=== PATIENT | male | born 1960 | race Caucasian/White ===

== ENCOUNTER 2020-11-10 13:47 | Emergency (ER) | payer OTHER, MEDICAID, SELFPAY ==
--- NOTE | 2020-11-10 14:21 | XR_ITS ---
EXAMINATION: XR CHEST CLINICAL INFORMATION: Shortness of breath. COMPARISON: Chest 09/15/2013 TECHNIQUE: Frontal view of the chest was obtained. FINDINGS: The lungs are well expanded and clear of acute process. The heart size and pulmonary vascularity is normal. There are dual pacer electrodes in the right atrium and the right ventricle. There are median sternotomy sutures and mediastinal elsi from previous intervention. There are surgical elsi seen in bilateral axilla, as well. These elsi are new compared to previous study from 2013. No gross bony abnormality seen. XR/XR chest 1V IMPRESSION: Evidence of CABG, pacer electrodes and bilateral axillary surgical elsi from previous intervention. No acute process seen.
--- NOTE | 2020-11-10 14:21 | ECG_ITS ---
Test Reason : WEAKNESS Blood Pressure : / mmHG Vent. Rate : 104 BPM Atrial Rate : 104 BPM P-R Int : 142 ms QRS Dur : 140 ms QT Int : 382 ms P-R-T Axes : 046 025 -27 degrees QTc Int : 502 ms Sinus tachycardia Right bundle branch block Consider anterolateral ischemia. Abnormal ECG When compared with ECG of 14-JUN-2011 10:36, Sinus rhythm has replaced Electronic ventricular pacemaker Vent. rate has increased BY 49 BPM Referred By: Debbie Henao Electronically Signed By:Tomás Melo
--- NOTE | 2020-11-10 14:23 | ED.GENADULT ---
HPI - General Adult General Chief complaint: General Medical <ARIDANA Capellan - Last Filed: 11/10/20 17:52> Stated complaint: high blood sugar <ARIADNA Capellan - Last Filed: 11/10/20 17:52> Time Seen by Provider: 11/10/20 14:04 <ARIADNA Capellan Last Filed: 11/10/20 17:52> Source: patient <ARIADNA Capellan Last Filed: 11/10/20 17:52> Mode of arrival: ambulatory <ARIADNA Capellan Last Filed: 11/10/20 17:52> Limitations: no limitations <ARIADNA Capellan Last Filed: 11/10/20 17:52> History of Present Illness HPI narrative: 60 y/o male with history of severe cardiomyopathy s/p heart transplant 03/2019, HTN, DM2 on Metformin & CKD who presents with hyperglycemia he thinks the last 4 days. He reports the monitor is not reading his glucose because it has been too high. He reports prior to this is morning glucose is usually 130-150's. He last checked his morning glucose a few weeks ago but has been feeling off for the last 4 days. He has been complaint with his meds. He recently saw his [facility]plant [facility] in [place] on 10/06 and workup was normal per his report. He admits to polyuria and polydipsia the last 4 days. When he was snowblowing his driveway this morning he got very nauseated which prompted him to come to the ER for further evaluation. He denies SOB or chest pain. No vomiting, diarrhea or abdominal pain. No COVID exposure. No cough, fever, chills, urinary symptoms. <ARIADNA Capellan - Last Filed: 11/10/20 17:52> MD complaint: hyperglycemia and nausea <ARIADNA Capellan Last Filed: 11/10/20 17:52> Onset (ago): day(s) (4) <ARIADNA Capellan - Last Filed: 11/10/20 17:52> Location: abdomen <ARIADNA Capellan Last Filed: 11/10/20 17:52> Severity: moderate <ARIADNA Capellan Last Filed: 11/10/20 17:52> Associated symptoms: nausea/vomiting <ARIADNA Capellan - Last Filed: 11/10/20 17:52> Treatments prior to arrival: none <ARIADNA Capellan Last Filed: 11/10/20 17:52> Related Data Home medications: Previous Rx's Medication Instructions Recorded metformin 1,000 mg PO BID #60 tab 11/10/20 <ARIADNA Capellan Last Filed: 11/10/20 17:52> Allergies/adverse reactions: Allergies Allergy/AdvReac Type Severity Reaction Status Date / Time No Known Allergies Allergy Unverified 07/01/20 15:01 <ARIADNA Capellan - Last Filed: 11/10/20 17:52> Review of Systems Review of Systems: Constitutional: No Fever, No Chills ENT/Mouth: No sore throat, No Rhinorrhea, No Swallowing Difficulty Eyes: No Eye Pain, No Swelling, No Redness Cardiovascular: No Chest Pain, No SOB, No Orthopnea, No Edema Respiratory: No Cough, No Sputum, No Wheezing, No dyspnea Gastrointestinal: + Nausea, No Vomiting, No Diarrhea, No abdominal Pain Genitourinary: No Dysuria, + Urinary Frequency, No Hematuria Musculoskeletal: No joint pain, No Myalgias Skin: No Skin Lesions, No rash Neuro: No Weakness, No Numbness, No Dizziness, No Headache Psych: No Anxiety/Panic, No Depression Heme/Lymph: No Bruising, No Lymphadenopathy Endocrine: + Polyuria, + Polydipsia <ARIADNA Capellan Last Filed: 11/10/20 17:52> [facility] Social History Social History: Social History Advance Directives: Yes Advance Directives Information Provided: Yes Advance Directives on File: No <ARIADNA Capellan Last Filed: 11/10/20 17:52> Physical Exam Vital Signs: Vital Signs: Last Vital Signs Temp 99.8 F 11/10/20 18:55 Pulse 99 11/10/20 18:55 Resp 20 11/10/20 18:55 BP 150/99 H 11/10/20 18:55 Pulse Ox 98 11/10/20 18:55 Body Mass Index 32.4 Appearance: Alert. Oriented X3. No acute distress. Eyes: Pupils equal, round and reactive to light. ENT: Pharynx normal. Neck: Normal inspection. Neck supple. CVS: Normal heart rate and rhythm. Pulses normal. Respiratory: No respiratory distress. Breath sounds normal. Abdomen: Soft and nontender. +BS x4 Skin: Skin warm and dry. Normal skin color. Normal skin turgor. No rashes. Extremities: No lower extremity edema. Neuro: Oriented X 3. No motor deficit. No sensory deficit. <ARIADNA Capellan - Last Filed: 11/10/20 17:52> Vital Signs: Last Vital Signs Temp 99.8 F 11/10/20 18:55 Pulse 99 11/10/20 18:55 Resp 11/10/20 18:55 BP 150/99 H 11/10/20 18:55 Pulse Ox 98 11/10/20 18:55 Body Mass Index 32.4 <Renetta Fulton NP - Last Filed: 11/11/20 03:27> Vital Signs: Last Vital Signs Temp 99.8 F 11/10/20 18:55 Pulse 99 11/10/20 18:55 Resp 11/10/20 18:55 BP 150/99 H 11/10/20 18:55 Pulse Ox 98 11/10/20 18:55 Body Mass Index 32.4 <Johnie Figueroa MD - Last Filed: 11/17/20 10:57> Course Course Course Narrative: 60 y/o male presenting with hyperglycemia and nausea. Hx DM2 on Metformin and heart transplant. Reports compliance with meds and diet however has not checked his glucose in 2-3 weeks. Nauseated this morning. Appears well on exam. Will r/o infection and IA. Labs, CXR, EKG and 1L IVF ordered. Will monitor glucose closely with hydration. <ARIADNA Capellan - Last Filed: 11/10/20 17:52> I have reviewed the chart <Johnie Figueroa MD - Last Filed: 11/17/20 10:57> Reevaluation(s) Reevaluation #1: Glucose 635 on chemisty without acidosis or anion gap. No evidence of DKA. He does have an LEXUS with BUN/Cr 34/2.17 - he states his baseline is 1.4-1.6 but it was up to 1.8 in August after his elbow surgery. Will give another liter IVF, 10 units SC insulin and reassess. Troponin 12 with abnormal EKG, no chest pain. Low suspicion for ACS. Will repeat troponin and EKG. Called [facility] number provided by patient - they are unable to speak about medical cases over the phone and are requesting a form be faxed for medical records release. Requested prior EKG and most recent visits. <ARIADNA Capellan - Last Filed: 11/10/20 17:52> Reevaluation #2: Repeat labs are pending. Signed out to Renetta who will assume care. Admission vs d/c home was discussed with the patient. If his renal function and glucose are improved he would prefer to be discharged home with increased dose of Metformin and follow up with his providers rather than be admitted and potentially exposed to COVID-19. He is agreeable to re-addressing once repeat labs are returned. <ARIADNA Capellan - Last Filed: 11/10/20 17:52> Medical Decision Making Lab Data Result diagrams: : 11/10/20 14:37 11/10/20 17:44 <ARIADNA Capellan - Last Filed: 11/10/20 17:52> Labs: Lab Results 11/10/20 11/10/20 11/10/20 Range/Units 14:25 14:37 14:37 WBC 8.3 (4.8-10.8) X10*3/uL RBC 4.23 L (4.60-5.80) X10*6/uL Hgb 11.8 L (14.0-18.0) g/dl Hct 34.9 L (42-52) % MCV 82.5 (80-98) fL MCH 27.9 (27.0-33.0) pg MCHC 33.8 (31.0-36.0) g/dl RDW 13.2 (11.0-16.0) % Plt Count 139 L (160-400) X10*3/uL MPV 11.7 (9.4-12.4) fL Immature Gran % (Auto) 0.6 H (0.0-0.4) % Neut % (Auto) 77.1 H (45-73) % Lymph % (Auto) 13.3 L (20-40) % [place] % (Auto) 8.1 (2-11) % Eos % (Auto) 0.7 (0-4) % Baso % (Auto) 0.2 (0-2) % Lymph # (Auto) 1.1 L (1.2-4.9) X10*3/uL [place] # (Auto) 0.7 (0.1-1.2) X10*3/uL Eos # (Auto) 0.1 (0.0-0.4) X10*3/uL Baso # (Auto) 0.0 (0.0-0.2) X10*3/uL Abs Immat Gran (auto) 0.05 H (0.00-0.03) X10*3/uL Absolute Neuts (auto) 6.4 (2.0-8.3) X10*3/uL Absolute Nucleated RBC 0.000 (0.0-0.012) X10*3/uL Nucleated RBC % (auto) 0.0 (0.0-0.2) /100WBC Hold Blue Top VBG pH (7.32-7.43) VBG pCO2 mmHg VBG pO2 mmHg VBG HCO3 mmol/L VBG O2 Saturation % VBG Base Excess mmol/L Sodium 129 L (135-145) mmol/L Potassium 4.8 (3.3-5.1) mmol/l Chloride 96 (96-108) mmol/L Carbon Dioxide 21 L (22-29) mmol/L Anion Gap 17 (12-20) BUN 34 H (9-16) mg/dL Creatinine 2.17 H (0.5-1.4) mg/dL Estim Creat Clear Calc 44.5 Estimated GFR 31 POC Glucose 595 H* (60-115) mg/dL Random Glucose 635 H* (60-115) mg/dL Lactic Acid (0.5-2.0) mmol/L Calcium 9.7 (8.4-10.2) mg/dL Magnesium 1.7 (1.6-2.6) mg/dL Total Bilirubin 1.0 (0.0-1.0) mg/dL Direct Bilirubin 0.3 (0.0-0.5) mg/dL AST 14 (5-37) U/L ALT 17 (0-40) U/L Alkaline Phosphatase 128 H (39-117) U/L Troponin I High Sens (<3.5-35.0) ng/L B-Natriuretic Peptide (<100) pg/mL Total Protein 7.1 (6.5-8.0) g/dL Albumin 4.5 (3.5-5.0) g/dL Urine Color Urine Appearance Urine pH (5.0-8.0) Ur Specific Rudolph (1.005-1.025) Urine Protein (NEG-TRACE) MG/DL Urine Glucose (UA) (NEG) MG/DL Urine Ketones (NEG) MG/DL Urine Blood (NEG) Urine Nitrite (NEG) Ur Leukocyte Esterase (NEG) Urine RBC (0) /HPF Urine WBC (0-4) /HPF Ur Squamous Epith Cells /LPF Urine Bacteria /LPF Granular Casts /LPF Acetone, Qual Negative (Negative) Coronavirus (PCR) (Negative) Influenza Type A (PCR) (Negative) Influenza Type B (PCR) (Negative) RSV RNA Qual (PCR) (Negative) 11/10/20 11/10/20 11/10/20 Range/Units 14:37 14:37 14:37 WBC (4.8-10.8) X10*3/uL RBC (4.60-5.80) X10*6/uL Hgb (14.0-18.0) g/dl Hct (42-52) % MCV (80-98) fL MCH (27.0-33.0) pg MCHC (31.0-36.0) g/dl RDW (11.0-16.0) % Plt Count (160-400) X10*3/uL MPV (9.4-12.4) fL Immature Gran % (Auto) (0.0-0.4) % Neut % (Auto) (45-73) % Lymph % (Auto) (20-40) % [place] % (Auto) (2-11) % Eos % (Auto) (0-4) % Baso % (Auto) (0-2) % Lymph # (Auto) (1.2-4.9) X10*3/uL [place] # (Auto) (0.1-1.2) X10*3/uL Eos # (Auto) (0.0-0.4) X10*3/uL Baso # (Auto) (0.0-0.2) X10*3/uL Abs Immat Gran (auto) (0.00-0.03) X10*3/uL Absolute Neuts (auto) (2.0-8.3) X10*3/uL Absolute Nucleated RBC (0.0-0.012) X10*3/uL Nucleated RBC % (auto) (0.0-0.2) /100WBC Hold Blue Top SEE NOTE VBG pH (7.32-7.43) VBG pCO2 mmHg VBG pO2 mmHg VBG HCO3 mmol/L VBG O2 Saturation % VBG Base Excess mmol/L Sodium (135-145) mmol/L Potassium (3.3-5.1) mmol/l Chloride (96-108) mmol/L Carbon Dioxide (22-29) mmol/L Anion Gap (12-20) BUN (9-16) mg/dL Creatinine (0.5-1.4) mg/dL Estim Creat Clear Calc Estimated GFR POC Glucose (60-115) mg/dL Random Glucose (60-115) mg/dL Lactic Acid 1.4 (0.5-2.0) mmol/L Calcium (8.4-10.2) mg/dL Magnesium (1.6-2.6) mg/dL Total Bilirubin (0.0-1.0) mg/dL Direct Bilirubin (0.0-0.5) mg/dL AST (5-37) U/L ALT (0-40) U/L Alkaline Phosphatase (39-117) U/L Troponin I High Sens 12.4 (<3.5-35.0) ng/L B-Natriuretic Peptide 46 (<100) pg/mL Total Protein (6.5-8.0) g/dL Albumin (3.5-5.0) g/dL Urine Color Urine Appearance Urine pH (5.0-8.0) Ur Specific Rudolph (1.005-1.025) Urine Protein (NEG-TRACE) MG/DL Urine Glucose (UA) (NEG) MG/DL Urine Ketones (NEG) MG/DL Urine Blood (NEG) Urine Nitrite (NEG) Ur Leukocyte Esterase (NEG) Urine RBC (0) /HPF Urine WBC (0-4) /HPF Ur Squamous Epith Cells /LPF Urine Bacteria /LPF Granular Casts /LPF Acetone, Qual (Negative) Coronavirus (PCR) (Negative) Influenza Type A (PCR) (Negative) Influenza Type B (PCR) (Negative) RSV RNA Qual (PCR) (Negative) 11/10/20 11/10/20 11/10/20 Range/Units 14:39 14:51 15:29 WBC (4.8-10.8) X10*3/uL RBC (4.60-5.80) X10*6/uL Hgb (14.0-18.0) g/dl Hct (42-52) % MCV (80-98) fL MCH (27.0-33.0) pg MCHC (31.0-36.0) g/dl RDW (11.0-16.0) % Plt Count (160-400) X10*3/uL MPV (9.4-12.4) fL Immature Gran % (Auto) (0.0-0.4) % Neut % (Auto) (45-73) % Lymph % (Auto) (20-40) % [place] % (Auto) (2-11) % Eos % (Auto) (0-4) % Baso % (Auto) (0-2) % Lymph # (Auto) (1.2-4.9) X10*3/uL [place] # (Auto) (0.1-1.2) X10*3/uL Eos # (Auto) (0.0-0.4) X10*3/uL Baso # (Auto) (0.0-0.2) X10*3/uL Abs Immat Gran (auto) (0.00-0.03) X10*3/uL Absolute Neuts (auto) (2.0-8.3) X10*3/uL Absolute Nucleated RBC (0.0-0.012) X10*3/uL Nucleated RBC % (auto) (0.0-0.2) /100WBC Hold Blue Top VBG pH 7.39 (7.32-7.43) VBG pCO2 38 mmHg VBG pO2 102 mmHg VBG HCO3 24 mmol/L VBG O2 Saturation 95.0 % VBG Base Excess -0.6 mmol/L Sodium (135-145) mmol/L Potassium (3.3-5.1) mmol/l Chloride (96-108) mmol/L Carbon Dioxide (22-29) mmol/L Anion Gap (12-20) BUN (9-16) mg/dL Creatinine (0.5-1.4) mg/dL Estim Creat Clear Calc Estimated GFR POC Glucose (60-115) mg/dL Random Glucose (60-115) mg/dL Lactic Acid (0.5-2.0) mmol/L Calcium (8.4-10.2) mg/dL Magnesium (1.6-2.6) mg/dL Total Bilirubin (0.0-1.0) mg/dL Direct Bilirubin (0.0-0.5) mg/dL AST (5-37) U/L ALT (0-40) U/L Alkaline Phosphatase (39-117) U/L Troponin I High Sens (<3.5-35.0) ng/L B-Natriuretic Peptide (<100) pg/mL Total Protein (6.5-8.0) g/dL Albumin (3.5-5.0) g/dL Urine Color YELLOW Urine Appearance CLEAR Urine pH 5.5 (5.0-8.0) Ur Specific Rudolph 1.010 (1.005-1.025) Urine Protein NEG (NEG-TRACE) MG/DL Urine Glucose (UA) >=1000 H (NEG) MG/DL Urine Ketones NEG (NEG) MG/DL Urine Blood TRACE (NEG) Urine Nitrite NEG (NEG) Ur Leukocyte Esterase NEG (NEG) Urine RBC 0 (0) /HPF Urine WBC 0-2 (0-4) /HPF Ur Squamous Epith Cells NONE /LPF Urine Bacteria NONE /LPF Granular Casts 0-2 /LPF Acetone, Qual (Negative) Coronavirus (PCR) NEGATIVE (Negative) Influenza Type A (PCR) NEGATIVE (Negative) Influenza Type B (PCR) NEGATIVE (Negative) RSV RNA Qual (PCR) NEGATIVE (Negative) 11/10/20 11/10/20 11/10/20 Range/Units 15:44 16:35 17:44 WBC (4.8-10.8) X10*3/uL RBC (4.60-5.80) X10*6/uL Hgb (14.0-18.0) g/dl Hct (42-52) % MCV (80-98) fL MCH (27.0-33.0) pg MCHC (31.0-36.0) g/dl RDW (11.0-16.0) % Plt Count (160-400) X10*3/uL MPV (9.4-12.4) fL Immature Gran % (Auto) (0.0-0.4) % Neut % (Auto) (45-73) % Lymph % (Auto) (20-40) % [place] % (Auto) (2-11) % Eos % (Auto) (0-4) % Baso % (Auto) (0-2) % Lymph # (Auto) (1.2-4.9) X10*3/uL [place] # (Auto) (0.1-1.2) X10*3/uL Eos # (Auto) (0.0-0.4) X10*3/uL Baso # (Auto) (0.0-0.2) X10*3/uL Abs Immat Gran (auto) (0.00-0.03) X10*3/uL Absolute Neuts (auto) (2.0-8.3) X10*3/uL Absolute Nucleated RBC (0.0-0.012) X10*3/uL Nucleated RBC % (auto) (0.0-0.2) /100WBC Hold Blue Top VBG pH (7.32-7.43) VBG pCO2 mmHg VBG pO2 mmHg VBG HCO3 mmol/L VBG O2 Saturation % VBG Base Excess mmol/L Sodium 133 L (135-145) mmol/L Potassium 4.6 (3.3-5.1) mmol/l Chloride 104 (96-108) mmol/L Carbon Dioxide 21 L (22-29) mmol/L Anion Gap 13 (12-20) BUN 29 H (9-16) mg/dL Creatinine 1.75 H (0.5-1.4) mg/dL Estim Creat Clear Calc 55.1 Estimated GFR 40 POC Glucose 531 H* 474 H* (60-115) mg/dL Random Glucose 365 H* (60-115) mg/dL Lactic Acid (0.5-2.0) mmol/L Calcium 8.8 D (8.4-10.2) mg/dL Magnesium (1.6-2.6) mg/dL Total Bilirubin (0.0-1.0) mg/dL Direct Bilirubin (0.0-0.5) mg/dL AST (5-37) U/L ALT (0-40) U/L Alkaline Phosphatase (39-117) U/L Troponin I High Sens (<3.5-35.0) ng/L B-Natriuretic Peptide (<100) pg/mL Total Protein (6.5-8.0) g/dL Albumin (3.5-5.0) g/dL Urine Color Urine Appearance Urine pH (5.0-8.0) Ur Specific Rudolph (1.005-1.025) Urine Protein (NEG-TRACE) MG/DL Urine Glucose (UA) (NEG) MG/DL Urine Ketones (NEG) MG/DL Urine Blood (NEG) Urine Nitrite (NEG) Ur Leukocyte Esterase (NEG) Urine RBC (0) /HPF Urine WBC (0-4) /HPF Ur Squamous Epith Cells /LPF Urine Bacteria /LPF Granular Casts /LPF Acetone, Qual (Negative) Coronavirus (PCR) (Negative) Influenza Type A (PCR) (Negative) Influenza Type B (PCR) (Negative) RSV RNA Qual (PCR) (Negative) 11/10/20 11/10/20 Range/Units 17:44 18:44 WBC (4.8-10.8) X10*3/uL RBC (4.60-5.80) X10*6/uL Hgb (14.0-18.0) g/dl Hct (42-52) % MCV (80-98) fL MCH (27.0-33.0) pg MCHC (31.0-36.0) g/dl RDW (11.0-16.0) % Plt Count (160-400) X10*3/uL MPV (9.4-12.4) fL Immature Gran % (Auto) (0.0-0.4) % Neut % (Auto) (45-73) % Lymph % (Auto) (20-40) % [place] % (Auto) (2-11) % Eos % (Auto) (0-4) % Baso % (Auto) (0-2) % Lymph # (Auto) (1.2-4.9) X10*3/uL [place] # (Auto) (0.1-1.2) X10*3/uL Eos # (Auto) (0.0-0.4) X10*3/uL Baso # (Auto) (0.0-0.2) X10*3/uL Abs Immat Gran (auto) (0.00-0.03) X10*3/uL Absolute Neuts (auto) (2.0-8.3) X10*3/uL Absolute Nucleated RBC (0.0-0.012) X10*3/uL Nucleated RBC % (auto) (0.0-0.2) /100WBC Hold Blue Top VBG pH (7.32-7.43) VBG pCO2 mmHg VBG pO2 mmHg VBG HCO3 mmol/L VBG O2 Saturation % VBG Base Excess mmol/L Sodium (135-145) mmol/L Potassium (3.3-5.1) mmol/l Chloride (96-108) mmol/L Carbon Dioxide (22-29) mmol/L Anion Gap (12-20) BUN (9-16) mg/dL Creatinine (0.5-1.4) mg/dL Estim Creat Clear Calc Estimated GFR POC Glucose 286 H (60-115) mg/dL Random Glucose (60-115) mg/dL Lactic Acid (0.5-2.0) mmol/L Calcium (8.4-10.2) mg/dL Magnesium (1.6-2.6) mg/dL Total Bilirubin (0.0-1.0) mg/dL Direct Bilirubin (0.0-0.5) mg/dL AST (5-37) U/L ALT (0-40) U/L Alkaline Phosphatase (39-117) U/L Troponin I High Sens 9.4 (<3.5-35.0) ng/L B-Natriuretic Peptide (<100) pg/mL Total Protein (6.5-8.0) g/dL Albumin (3.5-5.0) g/dL Urine Color Urine Appearance Urine pH (5.0-8.0) Ur Specific Rudolph (1.005-1.025) Urine Protein (NEG-TRACE) MG/DL Urine Glucose (UA) (NEG) MG/DL Urine Ketones (NEG) MG/DL Urine Blood (NEG) Urine Nitrite (NEG) Ur Leukocyte Esterase (NEG) Urine RBC (0) /HPF Urine WBC (0-4) /HPF Ur Squamous Epith Cells /LPF Urine Bacteria /LPF Granular Casts /LPF Acetone, Qual (Negative) Coronavirus (PCR) (Negative) Influenza Type A (PCR) (Negative) Influenza Type B (PCR) (Negative) RSV RNA Qual (PCR) (Negative) <ARIADNA Capellan - Last Filed: 11/10/20 17:52> Lab Results 11/10/20 11/10/20 11/10/20 Range/Units 14:25 14:37 14:37 WBC 8.3 (4.8-10.8) X10*3/uL RBC 4.23 L (4.60-5.80) X10*6/uL Hgb 11.8 L (14.0-18.0) g/dl Hct 34.9 L (42-52) % MCV 82.5 (80-98) fL MCH 27.9 (27.0-33.0) pg MCHC 33.8 (31.0-36.0) g/dl RDW 13.2 (11.0-16.0) % Plt Count 139 L (160-400) X10*3/uL MPV 11.7 (9.4-12.4) fL Immature Gran % (Auto) 0.6 H (0.0-0.4) % Neut % (Auto) 77.1 H (45-73) % Lymph % (Auto) 13.3 L (20-40) % [place] % (Auto) 8.1 (2-11) % Eos % (Auto) 0.7 (0-4) % Baso % (Auto) 0.2 (0-2) % Lymph # (Auto) 1.1 L (1.2-4.9) X10*3/uL [place] # (Auto) 0.7 (0.1-1.2) X10*3/uL Eos # (Auto) 0.1 (0.0-0.4) X10*3/uL Baso # (Auto) 0.0 (0.0-0.2) X10*3/uL Abs Immat Gran (auto) 0.05 H (0.00-0.03) X10*3/uL Absolute Neuts (auto) 6.4 (2.0-8.3) X10*3/uL Absolute Nucleated RBC 0.000 (0.0-0.012) X10*3/uL Nucleated RBC % (auto) 0.0 (0.0-0.2) /100WBC Hold Blue Top VBG pH (7.32-7.43) VBG pCO2 mmHg VBG pO2 mmHg VBG HCO3 mmol/L VBG O2 Saturation % VBG Base Excess mmol/L Sodium 129 L (135-145) mmol/L Potassium 4.8 (3.3-5.1) mmol/l Chloride 96 (96-108) mmol/L Carbon Dioxide 21 L (22-29) mmol/L Anion Gap 17 (12-20) BUN 34 H (9-16) mg/dL Creatinine 2.17 H (0.5-1.4) mg/dL Estim Creat Clear Calc 44.5 Estimated GFR 31 POC Glucose 595 H* (60-115) mg/dL Random Glucose 635 H* (60-115) mg/dL Lactic Acid (0.5-2.0) mmol/L Calcium 9.7 (8.4-10.2) mg/dL Magnesium 1.7 (1.6-2.6) mg/dL Total Bilirubin 1.0 (0.0-1.0) mg/dL Direct Bilirubin 0.3 (0.0-0.5) mg/dL AST 14 (5-37) U/L ALT 17 (0-40) U/L Alkaline Phosphatase 128 H (39-117) U/L Troponin I High Sens (<3.5-35.0) ng/L B-Natriuretic Peptide (<100) pg/mL Total Protein 7.1 (6.5-8.0) g/dL Albumin 4.5 (3.5-5.0) g/dL Urine Color Urine Appearance Urine pH (5.0-8.0) Ur Specific Rudolph (1.005-1.025) Urine Protein (NEG-TRACE) MG/DL Urine Glucose (UA) (NEG) MG/DL Urine Ketones (NEG) MG/DL Urine Blood (NEG) Urine Nitrite (NEG) Ur Leukocyte Esterase (NEG) Urine RBC (0) /HPF Urine WBC (0-4) /HPF Ur Squamous Epith Cells /LPF Urine Bacteria /LPF Granular Casts /LPF Acetone, Qual Negative (Negative) Coronavirus (PCR) (Negative) Influenza Type A (PCR) (Negative) Influenza Type B (PCR) (Negative) RSV RNA Qual (PCR) (Negative) 11/10/20 11/10/20 11/10/20 Range/Units 14:37 14:37 14:37 WBC (4.8-10.8) X10*3/uL RBC (4.60-5.80) X10*6/uL Hgb (14.0-18.0) g/dl Hct (42-52) % MCV (80-98) fL MCH (27.0-33.0) pg MCHC (31.0-36.0) g/dl RDW (11.0-16.0) % Plt Count (160-400) X10*3/uL MPV (9.4-12.4) fL Immature Gran % (Auto) (0.0-0.4) % Neut % (Auto) (45-73) % Lymph % (Auto) (20-40) % [place] % (Auto) (2-11) % Eos % (Auto) (0-4) % Baso % (Auto) (0-2) % Lymph # (Auto) (1.2-4.9) X10*3/uL [place] # (Auto) (0.1-1.2) X10*3/uL Eos # (Auto) (0.0-0.4) X10*3/uL Baso # (Auto) (0.0-0.2) X10*3/uL Abs Immat Gran (auto) (0.00-0.03) X10*3/uL Absolute Neuts (auto) (2.0-8.3) X10*3/uL Absolute Nucleated RBC (0.0-0.012) X10*3/uL Nucleated RBC % (auto) (0.0-0.2) /100WBC Hold Blue Top SEE NOTE VBG pH (7.32-7.43) VBG pCO2 mmHg VBG pO2 mmHg VBG HCO3 mmol/L VBG O2 Saturation % VBG Base Excess mmol/L Sodium (135-145) mmol/L Potassium (3.3-5.1) mmol/l Chloride (96-108) mmol/L Carbon Dioxide (22-29) mmol/L Anion Gap (12-20) BUN (9-16) mg/dL Creatinine (0.5-1.4) mg/dL Estim Creat Clear Calc Estimated GFR POC Glucose (60-115) mg/dL Random Glucose (60-115) mg/dL Lactic Acid 1.4 (0.5-2.0) mmol/L Calcium (8.4-10.2) mg/dL Magnesium (1.6-2.6) mg/dL Total Bilirubin (0.0-1.0) mg/dL Direct Bilirubin (0.0-0.5) mg/dL AST (5-37) U/L ALT (0-40) U/L Alkaline Phosphatase (39-117) U/L Troponin I High Sens 12.4 (<3.5-35.0) ng/L B-Natriuretic Peptide 46 (<100) pg/mL Total Protein (6.5-8.0) g/dL Albumin (3.5-5.0) g/dL Urine Color Urine Appearance Urine pH (5.0-8.0) Ur Specific [place] (1.005-1.025) Urine Protein (NEG-TRACE) MG/DL Urine Glucose (UA) (NEG) MG/DL Urine Ketones (NEG) MG/DL Urine Blood (NEG) Urine Nitrite (NEG) Ur Leukocyte Esterase (NEG) Urine RBC (0) /HPF Urine WBC (0-4) /HPF Ur Squamous Epith Cells /LPF Urine Bacteria /LPF Granular Casts /LPF Acetone, Qual (Negative) Coronavirus (PCR) (Negative) Influenza Type A (PCR) (Negative) Influenza Type B (PCR) (Negative) RSV RNA Qual (PCR) (Negative) 11/10/20 11/10/20 11/10/20 Range/Units 14:39 14:51 15:29 WBC (4.8-10.8) X10*3/uL RBC (4.60-5.80) X10*6/uL Hgb (14.0-18.0) g/dl Hct (42-52) % MCV (80-98) fL MCH (27.0-33.0) pg MCHC (31.0-36.0) g/dl RDW (11.0-16.0) % Plt Count (160-400) X10*3/uL MPV (9.4-12.4) fL Immature Gran % (Auto) (0.0-0.4) % Neut % (Auto) (45-73) % Lymph % (Auto) (20-40) % [place] % (Auto) (2-11) % Eos % (Auto) (0-4) % Baso % (Auto) (0-2) % Lymph # (Auto) (1.2-4.9) X10*3/uL [place] # (Auto) (0.1-1.2) X10*3/uL Eos # (Auto) (0.0-0.4) X10*3/uL Baso # (Auto) (0.0-0.2) X10*3/uL Abs Immat Gran (auto) (0.00-0.03) X10*3/uL Absolute Neuts (auto) (2.0-8.3) X10*3/uL Absolute Nucleated RBC (0.0-0.012) X10*3/uL Nucleated RBC % (auto) (0.0-0.2) /100WBC Hold Blue Top VBG pH 7.39 (7.32-7.43) VBG pCO2 38 mmHg VBG pO2 102 mmHg VBG HCO3 24 mmol/L VBG O2 Saturation 95.0 % VBG Base Excess -0.6 mmol/L Sodium (135-145) mmol/L Potassium (3.3-5.1) mmol/l Chloride (96-108) mmol/L Carbon Dioxide (22-29) mmol/L Anion Gap (12-20) BUN (9-16) mg/dL Creatinine (0.5-1.4) mg/dL Estim Creat Clear Calc Estimated GFR POC Glucose (60-115) mg/dL Random Glucose (60-115) mg/dL Lactic Acid (0.5-2.0) mmol/L Calcium (8.4-10.2) mg/dL Magnesium (1.6-2.6) mg/dL Total Bilirubin (0.0-1.0) mg/dL Direct Bilirubin (0.0-0.5) mg/dL AST (5-37) U/L ALT (0-40) U/L Alkaline Phosphatase (39-117) U/L Troponin I High Sens (<3.5-35.0) ng/L B-Natriuretic Peptide (<100) pg/mL Total Protein (6.5-8.0) g/dL Albumin (3.5-5.0) g/dL Urine Color YELLOW Urine Appearance CLEAR Urine pH 5.5 (5.0-8.0) Ur Specific [place] 1.010 (1.005-1.025) Urine Protein NEG (NEG-TRACE) MG/DL Urine Glucose (UA) >=1000 H (NEG) MG/DL Urine Ketones NEG (NEG) MG/DL Urine Blood TRACE (NEG) Urine Nitrite NEG (NEG) Ur Leukocyte Esterase NEG (NEG) Urine RBC 0 (0) /HPF Urine WBC 0-2 (0-4) /HPF Ur Squamous Epith Cells NONE /LPF Urine Bacteria NONE /LPF Granular Casts 0-2 /LPF Acetone, Qual (Negative) Coronavirus (PCR) NEGATIVE (Negative) Influenza Type A (PCR) NEGATIVE (Negative) Influenza Type B (PCR) NEGATIVE (Negative) RSV RNA Qual (PCR) NEGATIVE (Negative) 11/10/20 11/10/20 11/10/20 Range/Units 15:44 16:35 17:44 WBC (4.8-10.8) X10*3/uL RBC (4.60-5.80) X10*6/uL Hgb (14.0-18.0) g/dl Hct (42-52) % MCV (80-98) fL MCH (27.0-33.0) pg MCHC (31.0-36.0) g/dl RDW (11.0-16.0) % Plt Count (160-400) X10*3/uL MPV (9.4-12.4) fL Immature Gran % (Auto) (0.0-0.4) % Neut % (Auto) (45-73) % Lymph % (Auto) (20-40) % [place] % (Auto) (2-11) % Eos % (Auto) (0-4) % Baso % (Auto) (0-2) % Lymph # (Auto) (1.2-4.9) X10*3/uL [place] # (Auto) (0.1-1.2) X10*3/uL Eos # (Auto) (0.0-0.4) X10*3/uL Baso # (Auto) (0.0-0.2) X10*3/uL Abs Immat Gran (auto) (0.00-0.03) X10*3/uL Absolute Neuts (auto) (2.0-8.3) X10*3/uL Absolute Nucleated RBC (0.0-0.012) X10*3/uL Nucleated RBC % (auto) (0.0-0.2) /100WBC Hold Blue Top VBG pH (7.32-7.43) VBG pCO2 mmHg VBG pO2 mmHg VBG HCO3 mmol/L VBG O2 Saturation % VBG Base Excess mmol/L Sodium 133 L (135-145) mmol/L Potassium 4.6 (3.3-5.1) mmol/l Chloride 104 (96-108) mmol/L Carbon Dioxide 21 L (22-29) mmol/L Anion Gap 13 (12-20) BUN 29 H (9-16) mg/dL Creatinine 1.75 H (0.5-1.4) mg/dL Estim Creat Clear Calc 55.1 Estimated GFR 40 POC Glucose 531 H* 474 H* (60-115) mg/dL Random Glucose 365 H* (60-115) mg/dL Lactic Acid (0.5-2.0) mmol/L Calcium 8.8 D (8.4-10.2) mg/dL Magnesium (1.6-2.6) mg/dL Total Bilirubin (0.0-1.0) mg/dL Direct Bilirubin (0.0-0.5) mg/dL AST (5-37) U/L ALT (0-40) U/L Alkaline Phosphatase (39-117) U/L Troponin I High Sens (<3.5-35.0) ng/L B-Natriuretic Peptide (<100) pg/mL Total Protein (6.5-8.0) g/dL Albumin (3.5-5.0) g/dL Urine Color Urine Appearance Urine pH (5.0-8.0) Ur Specific Rudolph (1.005-1.025) Urine Protein (NEG-TRACE) MG/DL Urine Glucose (UA) (NEG) MG/DL Urine Ketones (NEG) MG/DL Urine Blood (NEG) Urine Nitrite (NEG) Ur Leukocyte Esterase (NEG) Urine RBC (0) /HPF Urine WBC (0-4) /HPF Ur Squamous Epith Cells /LPF Urine Bacteria /LPF Granular Casts /LPF Acetone, Qual (Negative) Coronavirus (PCR) (Negative) Influenza Type A (PCR) (Negative) Influenza Type B (PCR) (Negative) RSV RNA Qual (PCR) (Negative) 11/10/20 11/10/20 Range/Units 17:44 18:44 WBC (4.8-10.8) X10*3/uL RBC (4.60-5.80) X10*6/uL Hgb (14.0-18.0) g/dl Hct (42-52) % MCV (80-98) fL MCH (27.0-33.0) pg MCHC (31.0-36.0) g/dl RDW (11.0-16.0) % Plt Count (160-400) X10*3/uL MPV (9.4-12.4) fL Immature Gran % (Auto) (0.0-0.4) % Neut % (Auto) (45-73) % Lymph % (Auto) (20-40) % [place] % (Auto) (2-11) % Eos % (Auto) (0-4) % Baso % (Auto) (0-2) % Lymph # (Auto) (1.2-4.9) X10*3/uL [place] # (Auto) (0.1-1.2) X10*3/uL Eos # (Auto) (0.0-0.4) X10*3/uL Baso # (Auto) (0.0-0.2) X10*3/uL Abs Immat Gran (auto) (0.00-0.03) X10*3/uL Absolute Neuts (auto) (2.0-8.3) X10*3/uL Absolute Nucleated RBC (0.0-0.012) X10*3/uL Nucleated RBC % (auto) (0.0-0.2) /100WBC Hold Blue Top VBG pH (7.32-7.43) VBG pCO2 mmHg VBG pO2 mmHg VBG HCO3 mmol/L VBG O2 Saturation % VBG Base Excess mmol/L Sodium (135-145) mmol/L Potassium (3.3-5.1) mmol/l Chloride (96-108) mmol/L Carbon Dioxide (22-29) mmol/L Anion Gap (12-20) BUN (9-16) mg/dL Creatinine (0.5-1.4) mg/dL Estim Creat Clear Calc Estimated GFR POC Glucose 286 H (60-115) mg/dL Random Glucose (60-115) mg/dL Lactic Acid (0.5-2.0) mmol/L Calcium (8.4-10.2) mg/dL Magnesium (1.6-2.6) mg/dL Total Bilirubin (0.0-1.0) mg/dL Direct Bilirubin (0.0-0.5) mg/dL AST (5-37) U/L ALT (0-40) U/L Alkaline Phosphatase (39-117) U/L Troponin I High Sens 9.4 (<3.5-35.0) ng/L B-Natriuretic Peptide (<100) pg/mL Total Protein (6.5-8.0) g/dL Albumin (3.5-5.0) g/dL Urine Color Urine Appearance Urine pH (5.0-8.0) Ur Specific Rudolph (1.005-1.025) Urine Protein (NEG-TRACE) MG/DL Urine Glucose (UA) (NEG) MG/DL Urine Ketones (NEG) MG/DL Urine Blood (NEG) Urine Nitrite (NEG) Ur Leukocyte Esterase (NEG) Urine RBC (0) /HPF Urine WBC (0-4) /HPF Ur Squamous Epith Cells /LPF Urine Bacteria /LPF Granular Casts /LPF Acetone, Qual (Negative) Coronavirus (PCR) (Negative) Influenza Type A (PCR) (Negative) Influenza Type B (PCR) (Negative) RSV RNA Qual (PCR) (Negative) <Renetta Fulton NP - Last Filed: 11/11/20 03:27> Lab Results 11/10/20 11/10/20 11/10/20 Range/Units 14:25 14:37 14:37 WBC 8.3 (4.8-10.8) X10*3/uL RBC 4.23 L (4.60-5.80) X10*6/uL Hgb 11.8 L (14.0-18.0) g/dl Hct 34.9 L (42-52) % MCV 82.5 (80-98) fL MCH 27.9 (27.0-33.0) pg MCHC 33.8 (31.0-36.0) g/dl RDW 13.2 (11.0-16.0) % Plt Count 139 L (160-400) X10*3/uL MPV 11.7 (9.4-12.4) fL Immature Gran % (Auto) 0.6 H (0.0-0.4) % Neut % (Auto) 77.1 H (45-73) % Lymph % (Auto) 13.3 L (20-40) % [place] % (Auto) 8.1 (2-11) % Eos % (Auto) 0.7 (0-4) % Baso % (Auto) 0.2 (0-2) % Lymph # (Auto) 1.1 L (1.2-4.9) X10*3/uL [place] # (Auto) 0.7 (0.1-1.2) X10*3/uL Eos # (Auto) 0.1 (0.0-0.4) X10*3/uL Baso # (Auto) 0.0 (0.0-0.2) X10*3/uL Abs Immat Gran (auto) 0.05 H (0.00-0.03) X10*3/uL Absolute Neuts (auto) 6.4 (2.0-8.3) X10*3/uL Absolute Nucleated RBC 0.000 (0.0-0.012) X10*3/uL Nucleated RBC % (auto) 0.0 (0.0-0.2) /100WBC Hold Blue Top VBG pH (7.32-7.43) VBG pCO2 mmHg VBG pO2 mmHg VBG HCO3 mmol/L VBG O2 Saturation % VBG Base Excess mmol/L Sodium 129 L (135-145) mmol/L Potassium 4.8 (3.3-5.1) mmol/l Chloride 96 (96-108) mmol/L Carbon Dioxide 21 L (22-29) mmol/L Anion Gap 17 (12-20) BUN 34 H (9-16) mg/dL Creatinine 2.17 H (0.5-1.4) mg/dL Estim Creat Clear Calc 44.5 Estimated GFR 31 POC Glucose 595 H* (60-115) mg/dL Random Glucose 635 H* (60-115) mg/dL Lactic Acid (0.5-2.0) mmol/L Calcium 9.7 (8.4-10.2) mg/dL Magnesium 1.7 (1.6-2.6) mg/dL Total Bilirubin 1.0 (0.0-1.0) mg/dL Direct Bilirubin 0.3 (0.0-0.5) mg/dL AST 14 (5-37) U/L ALT 17 (0-40) U/L Alkaline Phosphatase 128 H (39-117) U/L Troponin I High Sens (<3.5-35.0) ng/L B-Natriuretic Peptide (<100) pg/mL Total Protein 7.1 (6.5-8.0) g/dL Albumin 4.5 (3.5-5.0) g/dL Urine Color Urine Appearance Urine pH (5.0-8.0) Ur Specific Rudolph (1.005-1.025) Urine Protein (NEG-TRACE) MG/DL Urine Glucose (UA) (NEG) MG/DL Urine Ketones (NEG) MG/DL Urine Blood (NEG) Urine Nitrite (NEG) Ur Leukocyte Esterase (NEG) Urine RBC (0) /HPF Urine WBC (0-4) /HPF Ur Squamous Epith Cells /LPF Urine Bacteria /LPF Granular Casts /LPF Acetone, Qual Negative (Negative) Coronavirus (PCR) (Negative) Influenza Type A (PCR) (Negative) Influenza Type B (PCR) (Negative) RSV RNA Qual (PCR) (Negative) 11/10/20 11/10/20 11/10/20 Range/Units 14:37 14:37 14:37 WBC (4.8-10.8) X10*3/uL RBC (4.60-5.80) X10*6/uL Hgb (14.0-18.0) g/dl Hct (42-52) % MCV (80-98) fL MCH (27.0-33.0) pg MCHC (31.0-36.0) g/dl RDW (11.0-16.0) % Plt Count (160-400) X10*3/uL MPV (9.4-12.4) fL Immature Gran % (Auto) (0.0-0.4) % Neut % (Auto) (45-73) % Lymph % (Auto) (20-40) % [place] % (Auto) (2-11) % Eos % (Auto) (0-4) % Baso % (Auto) (0-2) % Lymph # (Auto) (1.2-4.9) X10*3/uL [place] # (Auto) (0.1-1.2) X10*3/uL Eos # (Auto) (0.0-0.4) X10*3/uL Baso # (Auto) (0.0-0.2) X10*3/uL Abs Immat Gran (auto) (0.00-0.03) X10*3/uL Absolute Neuts (auto) (2.0-8.3) X10*3/uL Absolute Nucleated RBC (0.0-0.012) X10*3/uL Nucleated RBC % (auto) (0.0-0.2) /100WBC Hold Blue Top SEE NOTE VBG pH (7.32-7.43) VBG pCO2 mmHg VBG pO2 mmHg VBG HCO3 mmol/L VBG O2 Saturation % VBG Base Excess mmol/L Sodium (135-145) mmol/L Potassium (3.3-5.1) mmol/l Chloride (96-108) mmol/L Carbon Dioxide (22-29) mmol/L Anion Gap (12-20) BUN (9-16) mg/dL Creatinine (0.5-1.4) mg/dL Estim Creat Clear Calc Estimated GFR POC Glucose (60-115) mg/dL Random Glucose (60-115) mg/dL Lactic Acid 1.4 (0.5-2.0) mmol/L Calcium (8.4-10.2) mg/dL Magnesium (1.6-2.6) mg/dL Total Bilirubin (0.0-1.0) mg/dL Direct Bilirubin (0.0-0.5) mg/dL AST (5-37) U/L ALT (0-40) U/L Alkaline Phosphatase (39-117) U/L Troponin I High Sens 12.4 (<3.5-35.0) ng/L B-Natriuretic Peptide 46 (<100) pg/mL Total Protein (6.5-8.0) g/dL Albumin (3.5-5.0) g/dL Urine Color Urine Appearance Urine pH (5.0-8.0) Ur Specific Rudolph (1.005-1.025) Urine Protein (NEG-TRACE) MG/DL Urine Glucose (UA) (NEG) MG/DL Urine Ketones (NEG) MG/DL Urine Blood (NEG) Urine Nitrite (NEG) Ur Leukocyte Esterase (NEG) Urine RBC (0) /HPF Urine WBC (0-4) /HPF Ur Squamous Epith Cells /LPF Urine Bacteria /LPF Granular Casts /LPF Acetone, Qual (Negative) Coronavirus (PCR) (Negative) Influenza Type A (PCR) (Negative) Influenza Type B (PCR) (Negative) RSV RNA Qual (PCR) (Negative) 11/10/20 11/10/20 11/10/20 Range/Units 14:39 14:51 15:29 WBC (4.8-10.8) X10*3/uL RBC (4.60-5.80) X10*6/uL Hgb (14.0-18.0) g/dl Hct (42-52) % MCV (80-98) fL MCH (27.0-33.0) pg MCHC (31.0-36.0) g/dl RDW (11.0-16.0) % Plt Count (160-400) X10*3/uL MPV (9.4-12.4) fL Immature Gran % (Auto) (0.0-0.4) % Neut % (Auto) (45-73) % Lymph % (Auto) (20-40) % [place] % (Auto) (2-11) % Eos % (Auto) (0-4) % Baso % (Auto) (0-2) % Lymph # (Auto) (1.2-4.9) X10*3/uL [place] # (Auto) (0.1-1.2) X10*3/uL Eos # (Auto) (0.0-0.4) X10*3/uL Baso # (Auto) (0.0-0.2) X10*3/uL Abs Immat Gran (auto) (0.00-0.03) X10*3/uL Absolute Neuts (auto) (2.0-8.3) X10*3/uL Absolute Nucleated RBC (0.0-0.012) X10*3/uL Nucleated RBC % (auto) (0.0-0.2) /100WBC Hold Blue Top VBG pH 7.39 (7.32-7.43) VBG pCO2 38 mmHg VBG pO2 102 mmHg VBG HCO3 24 mmol/L VBG O2 Saturation 95.0 % VBG Base Excess -0.6 mmol/L Sodium (135-145) mmol/L Potassium (3.3-5.1) mmol/l Chloride (96-108) mmol/L Carbon Dioxide (22-29) mmol/L Anion Gap (12-20) BUN (9-16) mg/dL Creatinine (0.5-1.4) mg/dL Estim Creat Clear Calc Estimated GFR POC Glucose (60-115) mg/dL Random Glucose (60-115) mg/dL Lactic Acid (0.5-2.0) mmol/L Calcium (8.4-10.2) mg/dL Magnesium (1.6-2.6) mg/dL Total Bilirubin (0.0-1.0) mg/dL Direct Bilirubin (0.0-0.5) mg/dL AST (5-37) U/L ALT (0-40) U/L Alkaline Phosphatase (39-117) U/L Troponin I High Sens (<3.5-35.0) ng/L B-Natriuretic Peptide (<100) pg/mL Total Protein (6.5-8.0) g/dL Albumin (3.5-5.0) g/dL Urine Color YELLOW Urine Appearance CLEAR Urine pH 5.5 (5.0-8.0) Ur Specific Rudolph 1.010 (1.005-1.025) Urine Protein NEG (NEG-TRACE) MG/DL Urine Glucose (UA) >=1000 H (NEG) MG/DL Urine Ketones NEG (NEG) MG/DL Urine Blood TRACE (NEG) Urine Nitrite NEG (NEG) Ur Leukocyte Esterase NEG (NEG) Urine RBC 0 (0) /HPF Urine WBC 0-2 (0-4) /HPF Ur Squamous Epith Cells NONE /LPF Urine Bacteria NONE /LPF Granular Casts 0-2 /LPF Acetone, Qual (Negative) Coronavirus (PCR) NEGATIVE (Negative) Influenza Type A (PCR) NEGATIVE (Negative) Influenza Type B (PCR) NEGATIVE (Negative) RSV RNA Qual (PCR) NEGATIVE (Negative) 11/10/20 11/10/20 11/10/20 Range/Units 15:44 16:35 17:44 WBC (4.8-10.8) X10*3/uL RBC (4.60-5.80) X10*6/uL Hgb (14.0-18.0) g/dl Hct (42-52) % MCV (80-98) fL MCH (27.0-33.0) pg MCHC (31.0-36.0) g/dl RDW (11.0-16.0) % Plt Count (160-400) X10*3/uL MPV (9.4-12.4) fL Immature Gran % (Auto) (0.0-0.4) % Neut % (Auto) (45-73) % Lymph % (Auto) (20-40) % [place] % (Auto) (2-11) % Eos % (Auto) (0-4) % Baso % (Auto) (0-2) % Lymph # (Auto) (1.2-4.9) X10*3/uL [place] # (Auto) (0.1-1.2) X10*3/uL Eos # (Auto) (0.0-0.4) X10*3/uL Baso # (Auto) (0.0-0.2) X10*3/uL Abs Immat Gran (auto) (0.00-0.03) X10*3/uL Absolute Neuts (auto) (2.0-8.3) X10*3/uL Absolute Nucleated RBC (0.0-0.012) X10*3/uL Nucleated RBC % (auto) (0.0-0.2) /100WBC Hold Blue Top VBG pH (7.32-7.43) VBG pCO2 mmHg VBG pO2 mmHg VBG HCO3 mmol/L VBG O2 Saturation % VBG Base Excess mmol/L Sodium 133 L (135-145) mmol/L Potassium 4.6 (3.3-5.1) mmol/l Chloride 104 (96-108) mmol/L Carbon Dioxide 21 L (22-29) mmol/L Anion Gap 13 (12-20) BUN 29 H (9-16) mg/dL Creatinine 1.75 H (0.5-1.4) mg/dL Estim Creat Clear Calc 55.1 Estimated GFR 40 POC Glucose 531 H* 474 H* (60-115) mg/dL Random Glucose 365 H* (60-115) mg/dL Lactic Acid (0.5-2.0) mmol/L Calcium 8.8 D (8.4-10.2) mg/dL Magnesium (1.6-2.6) mg/dL Total Bilirubin (0.0-1.0) mg/dL Direct Bilirubin (0.0-0.5) mg/dL AST (5-37) U/L ALT (0-40) U/L Alkaline Phosphatase (39-117) U/L Troponin I High Sens (<3.5-35.0) ng/L B-Natriuretic Peptide (<100) pg/mL Total Protein (6.5-8.0) g/dL Albumin (3.5-5.0) g/dL Urine Color Urine Appearance Urine pH (5.0-8.0) Ur Specific Rudolph (1.005-1.025) Urine Protein (NEG-TRACE) MG/DL Urine Glucose (UA) (NEG) MG/DL Urine Ketones (NEG) MG/DL Urine Blood (NEG) Urine Nitrite (NEG) Ur Leukocyte Esterase (NEG) Urine RBC (0) /HPF Urine WBC (0-4) /HPF Ur Squamous Epith Cells /LPF Urine Bacteria /LPF Granular Casts /LPF Acetone, Qual (Negative) Coronavirus (PCR) (Negative) Influenza Type A (PCR) (Negative) Influenza Type B (PCR) (Negative) RSV RNA Qual (PCR) (Negative) 11/10/20 11/10/20 Range/Units 17:44 18:44 WBC (4.8-10.8) X10*3/uL RBC (4.60-5.80) X10*6/uL Hgb (14.0-18.0) g/dl Hct (42-52) % MCV (80-98) fL MCH (27.0-33.0) pg MCHC (31.0-36.0) g/dl RDW (11.0-16.0) % Plt Count (160-400) X10*3/uL MPV (9.4-12.4) fL Immature Gran % (Auto) (0.0-0.4) % Neut % (Auto) (45-73) % Lymph % (Auto) (20-40) % [place] % (Auto) (2-11) % Eos % (Auto) (0-4) % Baso % (Auto) (0-2) % Lymph # (Auto) (1.2-4.9) X10*3/uL [place] # (Auto) (0.1-1.2) X10*3/uL Eos # (Auto) (0.0-0.4) X10*3/uL Baso # (Auto) (0.0-0.2) X10*3/uL Abs Immat Gran (auto) (0.00-0.03) X10*3/uL Absolute Neuts (auto) (2.0-8.3) X10*3/uL Absolute Nucleated RBC (0.0-0.012) X10*3/uL Nucleated RBC % (auto) (0.0-0.2) /100WBC Hold Blue Top VBG pH (7.32-7.43) VBG pCO2 mmHg VBG pO2 mmHg VBG HCO3 mmol/L VBG O2 Saturation % VBG Base Excess mmol/L Sodium (135-145) mmol/L Potassium (3.3-5.1) mmol/l Chloride (96-108) mmol/L Carbon Dioxide (22-29) mmol/L Anion Gap (12-20) BUN (9-16) mg/dL Creatinine (0.5-1.4) mg/dL Estim Creat Clear Calc Estimated GFR POC Glucose 286 H (60-115) mg/dL Random Glucose (60-115) mg/dL Lactic Acid (0.5-2.0) mmol/L Calcium (8.4-10.2) mg/dL Magnesium (1.6-2.6) mg/dL Total Bilirubin (0.0-1.0) mg/dL Direct Bilirubin (0.0-0.5) mg/dL AST (5-37) U/L ALT (0-40) U/L Alkaline Phosphatase (39-117) U/L Troponin I High Sens 9.4 (<3.5-35.0) ng/L B-Natriuretic Peptide (<100) pg/mL Total Protein (6.5-8.0) g/dL Albumin (3.5-5.0) g/dL Urine Color Urine Appearance Urine pH (5.0-8.0) Ur Specific Rudolph (1.005-1.025) Urine Protein (NEG-TRACE) MG/DL Urine Glucose (UA) (NEG) MG/DL Urine Ketones (NEG) MG/DL Urine Blood (NEG) Urine Nitrite (NEG) Ur Leukocyte Esterase (NEG) Urine RBC (0) /HPF Urine WBC (0-4) /HPF Ur Squamous Epith Cells /LPF Urine Bacteria /LPF Granular Casts /LPF Acetone, Qual (Negative) Coronavirus (PCR) (Negative) Influenza Type A (PCR) (Negative) Influenza Type B (PCR) (Negative) RSV RNA Qual (PCR) (Negative) <Johnie Figueroa MD - Last Filed: 11/17/20 10:57> ECG Data Attestation: I personally reviewed and interpreted this ECG as follows: <ARIADNA Capellan - Last Filed: 11/10/20 17:52> Interpretation: 14:35- sinus tachycardia, HR 104, RBBB, T-wave abnormality in lead III and t-wave inversions throughout precordial leads 16:47 - normal sinus rhythm, HR 96 bpm, no change in T-wave abnormality in lead III & precordial leads <ARIADNA Capellan - Last Filed: 11/10/20 17:52> Discharge Plan Discharge Clinical Impression: Acute kidney injury, Acute hyperglycemia <ARIADNA Capellan - Last Filed: 11/10/20 17:52> Patient Disposition: Home, Self-Care <ARIADNA Capellan - Last Filed: 11/10/20 17:52> Instructions: Acute Kidney Injury (DC), Diabetic Hyperglycemia (ED) <ARIADNA Capellan - Last Filed: 11/10/20 17:52> Additional Instructions: You were evaluated for elevated blood sugar. Over the course of several hours we gave the 17 units of subcu insulin to help reduce your blood sugar. Please follow-up with your primary care physician and or prescribing physician for medication evaluation. You may need to increase metformin or consider insulin. Please follow-up with the cardiac transplant team tomorrow. Thank you for choosing this emergency department for evaluation. Please follow-up with primary care physician as needed. Return to the emergency department for any new, concerning, or worsening symptoms. <ARIADNA Capellan - Last Filed: 11/10/20 17:52> Prescriptions: New metformin 1,000 mg tablet 1,000 mg PO BID Qty: 60 RF: 0 <ARIADNA Capellan - Last Filed: 11/10/20 17:52> Interventions: ED Discharge Assessment Last Done: 11/10/20 18:53 <ARIADNA Capellan - Last Filed: 11/10/20 17:52> Discharge Date/Time: 11/10/20 18:55 <ARIADNA Capellan - Last Filed: 11/10/20 17:52>
[2020-11-10 14:26] VITALS: BP 143/77; PULSE 107; RESP 18; TEMP 37.3; O2SAT 97; BMI 32.4
[2020-11-10] MEDS: 0.9 % Sodium Chloride 1,000 ML 999 ML IVCONT ×2 (14:41→15:48)
[2020-11-10 14:43] LABS: Glucose, Whole Blood 595 mg/dL (60-115)
[2020-11-10 14:45] LABS: MANUAL DIFF FLAG NO
[2020-11-10 14:46] LABS: Basophils Percent Auto 0.2 % (0-2); Eosinophils Absolute Auto 0.1 X10*3/uL (0.0-0.4); Eosinophils Percent Auto 0.7 % (0-4); Hematocrit 34.9 % (42-52); Hemoglobin 11.8 g/dl (14.0-18.0); Imm Gran Abs Auto 0.05 X10*3/uL (0.00-0.03); Imm Gran Pct Auto 0.6 % (0.0-0.4); Lymphocytes Absolute Auto 1.1 X10*3/uL (1.2-4.9); Lymphocytes Percent Auto 13.3 % (20-40); Mean Corpuscular HGB Conc 33.8 g/dl (31.0-36.0); Mean Corpuscular Hemoglobin 27.9 pg (27.0-33.0); Mean Corpuscular Volume 82.5 fL (80-98); Mean Platelet Volume 11.7 fL (9.4-12.4); Monocytes Absolute Auto 0.7 X10*3/uL (0.1-1.2); Monocytes Percent Auto 8.1 % (2-11); Neutrophils Absolute Auto 6.4 X10*3/uL (2.0-8.3); Neutrophils Percent Auto 77.1 % (45-73); Platelet Count 139 X10*3/uL (160-400); Red Blood Count 4.23 X10*6/uL (4.60-5.80); Red Cell Distribution Width 13.2 % (11.0-16.0); White Blood Count 8.3 X10*3/uL (4.8-10.8)
[2020-11-10 15:01] LABS: Base Excess VBG -0.6 mmol/L; HCO3 VBG 24 mmol/L; PCO2 VBG 38 mmHg; PO2 VBG 102 mmHg; pH VBG 7.39 (7.32-7.43)
[2020-11-10 15:02] LABS: Lactic Acid 1.4 mmol/L (0.5-2.0)
[2020-11-10 15:13] LABS: B Type Natriuretic Peptide 46 pg/mL (<100); Troponin-I High Sensitivity 12.4 ng/L (<3.5-35.0)
[2020-11-10 15:22] VITALS: BP 150/89; PULSE 97; RESP 15; TEMP 37.2; O2SAT 97
[2020-11-10 15:22] LABS: Influenza A PCR NEGATIVE (Negative); Influenza B PCR NEGATIVE (Negative); Resp Syncy Virus RNA Qual PCR NEGATIVE (Negative); SARS COV2 PCR INHOUSE NEGATIVE (Negative)
[2020-11-10 15:28] LABS: Alanine Aminotransferase 17 U/L (0-40); Albumin Level 4.5 g/dL (3.5-5.0); Alkaline Phosphatase 128 U/L (39-117); Anion Gap 17 (12-20); Aspartate Amino Transferase 14 U/L (5-37); Bilirubin Direct 0.3 mg/dL (0.0-0.5); Blood Urea Nitrogen 34 mg/dL (9-16); Calcium 9.7 mg/dL (8.4-10.2); Carbon Dioxide 21 mmol/L (22-29); Chloride 96 mmol/L (96-108); Creatinine Clr Calc Pharmacy 44.5; Estimated Glomerular Filt Rate 31; Glucose Random 635 mg/dL (60-115); Magnesium 1.7 mg/dL (1.6-2.6); Potassium 4.8 mmol/l (3.3-5.1); Sodium 129 mmol/L (135-145); Total Protein 7.1 g/dL (6.5-8.0)
[2020-11-10 15:38] LABS: Glucose Urine UA >=1000 MG/DL (NEG); Leukocyte Esterase Urine NEG (NEG); Nitrite Urine NEG (NEG); PH 5.5 (5.0-8.0); Urine Blood TRACE (NEG); Urine Ketones NEG (NEG); Urine Protein NEG (NEG-TRACE)
[2020-11-10 15:47] LABS: Glucose, Whole Blood 531 mg/dL (60-115)
[2020-11-10] MEDS: Insulin Lispro 100 UNIT/ML 3 ML VIAL 10 UNIT SUBCUT (15:47)
[2020-11-10 15:49] LABS: Appearance Urine CLEAR; Color Urine YELLOW
[2020-11-10 15:50] LABS: Granular Casts Urine 0-2 /LPF; RBC Urine 0 /HPF (0); WBC Urine 0-2 /HPF (0-4)
[2020-11-10 16:03] LABS: Acetone, serum QL Negative (Negative)
[2020-11-10 16:21] VITALS: BP 134/87; PULSE 92; RESP 15; TEMP 37.3; O2SAT 97
--- NOTE | 2020-11-10 16:27 | ECG_ITS ---
Test Reason : HYPERGLYCEMIA Blood Pressure : / mmHG Vent. Rate : 096 BPM Atrial Rate : 096 BPM P-R Int : 162 ms QRS Dur : 144 ms QT Int : 388 ms P-R-T Axes : 047 026 -18 degrees QTc Int : 490 ms Normal sinus rhythm Right bundle branch block T wave abnormality, consider inferior ischemia /anterior lateral ischemia Abnormal ECG When compared with ECG of 10-NOV-2020 14:35, No significant change was found Referred By: Debbie Henao Electronically Signed By:Tomás Melo
[2020-11-10 16:43] LABS: Glucose, Whole Blood 474 mg/dL (60-115)
[2020-11-10 18:20] LABS: Anion Gap 13 (12-20); Blood Urea Nitrogen 29 mg/dL (9-16); Calcium 8.8 mg/dL (8.4-10.2); Carbon Dioxide 21 mmol/L (22-29); Chloride 104 mmol/L (96-108); Creatinine Clr Calc Pharmacy 55.1; Estimated Glomerular Filt Rate 40; Glucose Random 365 mg/dL (60-115); Potassium 4.6 mmol/l (3.3-5.1); Sodium 133 mmol/L (135-145); Troponin-I High Sensitivity 9.4 ng/L (<3.5-35.0)
[2020-11-10] MEDS: Insulin Regular, Human 100 UNIT/ML 3 ML VIAL 7 UNIT SUBCUT (18:48)
[2020-11-10 18:49] LABS: Glucose, Whole Blood 286 mg/dL (60-115)
[2020-11-10 18:55] VITALS: BP 150/99; PULSE 99; RESP 20; TEMP 37.7; O2SAT 98
== END 2020-11-10 18:55 | disposition home or self-care (01) ==
PROVIDERS: Physician Assistant; Emergency Provider Emergency Medicine; PCP Internal Medicine
DX: E11.65 Type 2 diabetes mellitus with hyperglycemia (principal); R11.2 Nausea with vomiting, unspecified; I10 Essential (primary) hypertension; Z20.822 Contact with and (suspected) exposure to COVID-19; Z79.4 Long term (current) use of insulin; Z79.899 Other long term (current) drug therapy
CPT/HCPCS: 0241U; 36415; 71045; 80048; 80076; 81001; 82009; 82803; 82947; 83605; 83735; 83880; 84484; 85025; 87040; 93005; 96360; 96361; 99283; 99291

== ENCOUNTER 2022-06-05 10:08 | Day surgery (SDC) | payer OTHER, MEDICAID, SELFPAY ==
[2022-05-31 10:52] VITALS: BMI 31.6
--- NOTE | 2022-06-02 13:35 | HO.ANESPROP2 ---
Documented by User: Mireya Kelly NP 06/02/22 13:42 HPI - Anesthesia Eval Consult details Narrative: 61yo M for Upper Endoscopy and Colonoscopy s/p heart transplant 03/2019. Follows at [facility]. Cardiac optimized to proceed. Per 02/2022 visit, pt juaney active without CP/SOB/palps. [facility] Past Medical History Medical History CHF (congestive heart failure) Chronic renal insufficiency COVID-19 vaccine series completed Diabetes Elevated cholesterol History of COVID-19 Myocardial infarction Pacemaker Surgical History Surgical History H/O colonoscopy History of carpal tunnel surgery of right wrist History of elbow surgery History of esophagogastroduodenoscopy (EGD) History of PTCA History of surgery on arm Hx of appendectomy Hx of CABG Hx of heart transplant Hx of nasal septoplasty Hx of repair of right rotator cuff Social History Social History Are you a primary physician assistant primary care to a significant other at home: No Do you presently have visiting nurse or other home services: No Patient Tobacco Use Status: Never used Tobacco Use of substances other than those prescribed or required for medical reasons: No Have you been hit, kicked, punched, or otherwise hurt by someone within the past year? If so, by whom?: No Are you DNR?: No Advance Directives: No (states has HCP but ? if has official form) Advance Directives Information Provided: Yes (brochure mailed) Advance Directives on File: No Recently lost weight without trying: No Eating poorly because of decreased appetite: No Nutrition Risks: No Nutritional Risk Poor oral hygiene: No Meds Allergies Allergy/AdvReac Type Severity Reaction Status Date / Time heparin Allergy Unknown Verified 06/05/22 10:49 spironolactone Allergy Unknown Verified 06/05/22 10:49 Home Medications Medication Instructions Recorded Confirmed Last Taken Type aspirin 81 mg tablet,delayed 81 mg PO DAILY 05/31/22 05/31/22 05/29/22 History release calcium carbonate 500 mg calcium 1,000 mg PO DAILY 05/31/22 05/31/22 Unknown History (1,250 mg) tablet cholecalciferol (vitamin D3) 25 25 mcg PO DAILY 05/31/22 05/31/22 Unknown History mcg (1,000 unit) capsule (Vitamin D3) docusate sodium 100 mg capsule 100 mg PO DAILY 05/31/22 05/31/22 Unknown History doxazosin 2 mg tablet 2 mg PO DAILY 05/31/22 05/31/22 06/05/22 08:00 History dulaglutide 3 mg/0.5 mL 3 mg subcut QWEEK 05/31/22 05/31/22 Unknown History subcutaneous pen injector (Trulicity) lisinopril 10 mg tablet 10 mg PO DAILY 05/31/22 05/31/22 Unknown History magnesium oxide 420 mg tablet 840 mg PO BID 05/31/22 05/31/22 Unknown History metformin 500 mg tablet 500 mg PO BID 05/31/22 05/31/22 Unknown History mycophenolate mofetil 500 mg 500 mg PO BID 05/31/22 05/31/22 06/05/22 08:00 History tablet (CellCept) pantoprazole 40 mg tablet,delayed 40 mg PO DAILY 05/31/22 05/31/22 Unknown History release rosuvastatin 40 mg tablet 40 mg PO DAILY 05/31/22 05/31/22 Unknown History tacrolimus 1 mg capsule, 1.5 mg PO Q12H 05/31/22 05/31/22 06/05/22 08:00 History immediate-release Exam Exam Date and Time: June 02, 2022 1335 Height,Weight and Vital Signs: Height 6 ft Weight 105.687 kg Pertinent Lab Results Pertinent Lab Results: From outside facility 02/15/22 Na 138 K 5.0 BUN 38 (H) Creat 1.96 (H) WBC 6.2 Hgb 11.3 (L) Hct 36.2 (L) Plt 157 Narrative Narrative: Nuc Stress 03/2021 Perfusion imaging findings at stress/rest demonstrate no ischemia or infarct. Normal global function with LVEF 74% ECHO 2020 LV normal in size and wall thickness EF 55% Borderline RV enlargement RV systolic function is mildly reduced Trace MR Trace TR Trace [place] Assessment and Plan Assessment Anesthesia Assessment: Chart Reviewed Documented by User: Peterson Irizarry MD 06/05/22 11:27 [facility] Past Medical History Medical History CHF (congestive heart failure) Chronic renal insufficiency COVID-19 vaccine series completed Diabetes Elevated cholesterol History of COVID-19 Myocardial infarction Pacemaker Family History Family history of problems with anesthesia: No Surgical History Surgical History H/O colonoscopy History of carpal tunnel surgery of right wrist History of elbow surgery History of esophagogastroduodenoscopy (EGD) History of PTCA History of surgery on arm Hx of appendectomy Hx of CABG Hx of heart transplant Hx of nasal septoplasty Hx of repair of right rotator cuff History of Problems with Anesthesia: No Social History Social History Are you a primary physician assistant primary care to a significant other at home: No Do you presently have visiting nurse or other home services: No Patient Tobacco Use Status: Never used Tobacco Use of substances other than those prescribed or required for medical reasons: No Have you been hit, kicked, punched, or otherwise hurt by someone within the past year? If so, by whom?: No Are you DNR?: No Advance Directives: No (states has HCP but ? if has official form) Advance Directives Information Provided: Yes (brochure mailed) Advance Directives on File: No Recently lost weight without trying: No Eating poorly because of decreased appetite: No Nutrition Risks: No Nutritional Risk Poor oral hygiene: No Meds Allergies Allergy/AdvReac Type Severity Reaction Status Date / Time heparin Allergy Unknown Verified 06/05/22 10:49 spironolactone Allergy Unknown Verified 06/05/22 10:49 Home Medications Medication Instructions Recorded Confirmed Last Taken Type aspirin 81 mg tablet,delayed 81 mg PO DAILY 05/31/22 05/31/22 05/29/22 History release calcium carbonate 500 mg calcium 1,000 mg PO DAILY 05/31/22 05/31/22 Unknown History (1,250 mg) tablet cholecalciferol (vitamin D3) 25 25 mcg PO DAILY 05/31/22 05/31/22 Unknown History mcg (1,000 unit) capsule (Vitamin D3) docusate sodium 100 mg capsule 100 mg PO DAILY 05/31/22 05/31/22 Unknown History doxazosin 2 mg tablet 2 mg PO DAILY 05/31/22 05/31/22 06/05/22 08:00 History dulaglutide 3 mg/0.5 mL 3 mg subcut QWEEK 05/31/22 05/31/22 Unknown History subcutaneous pen injector (Trulicity) lisinopril 10 mg tablet 10 mg PO DAILY 05/31/22 05/31/22 Unknown History magnesium oxide 420 mg tablet 840 mg PO BID 05/31/22 05/31/22 Unknown History metformin 500 mg tablet 500 mg PO BID 05/31/22 05/31/22 Unknown History mycophenolate mofetil 500 mg 500 mg PO BID 05/31/22 05/31/22 06/05/22 08:00 History tablet (CellCept) pantoprazole 40 mg tablet,delayed 40 mg PO DAILY 05/31/22 05/31/22 Unknown History release rosuvastatin 40 mg tablet 40 mg PO DAILY 05/31/22 05/31/22 Unknown History tacrolimus 1 mg capsule, 1.5 mg PO Q12H 05/31/22 05/31/22 06/05/22 08:00 History immediate-release Exam Airway Mallampati Class: IV TM Dist: >3cm Neck ROM: Full Loose/Missing/Broken Teeth: No Heart: rrr Lungs: clear Assessment and Plan Final Anesthetic Review Family History of Problems with Anesthesia: No History of Problems with Anesthesia: No NPO: Yes ASA Class: IV Final Preanesthetic Review: No Changes in Pt Med Stat, Meds/Allgs Chart Reviewed, Consent Obtained/Reviewed and Anes Risks/Benef Reviewed Patient Risk: Intermediate Procedure Risk: Low Anesthetic Plan Anesthetic Plan: MAC: Disposition: Standard PACU
--- NOTE | 2022-06-05 | ECG_ITS ---
Test Reason : hx cad Blood Pressure : / mmHG Vent. Rate : 100 BPM Atrial Rate : 100 BPM P-R Int : 162 ms QRS Dur : 152 ms QT Int : 396 ms P-R-T Axes : 039 037 -16 degrees QTc Int : 510 ms Normal sinus rhythm Right bundle branch block T wave abnormality, consider inferolateral ischemia Abnormal ECG When compared with ECG of 10-NOV-2020 16:47, No significant change was found Referred By: Mireya Kelly Electronically Signed By:SANDEE HOLCOMB
[2022-06-05 10:53] VITALS: BP 123/81; PULSE 95; RESP 17; TEMP 36.6; O2SAT 97
[2022-06-05 11:07] LABS: Glucose, Whole Blood 119 mg/dL (60-115)
--- NOTE | 2022-06-05 11:15 | PC.NURSE ---
anes made aware of new ekg done today. ok to proceed when compared to older one.
[2022-06-05] MEDS: Lactated Ringers 1,000 ML 50 ML IVCONT (11:17)
[2022-06-05 12:45] VITALS: BP 101/75; PULSE 86; RESP 18; TEMP 36.3; O2SAT 97
--- NOTE | 2022-06-05 12:50 | PM.OP ---
Brief Operative Note Date of Service: 06/05/22 Pre-op diagnosis: Screening, Vomiting Post-op diagnosis: other (Hiatal hernia, R/O Duodenal lymphangicetasia, Colon polyp) Procedure: EGD with biopsies, Colonoscopy to the cecum with hot snare polypectomy x 1 Surgeon: Ernie Alvarez Anesthesia: MAC Was an Software Configuration Specialist used for this Procedure?: No Estimated blood loss (mL): 2.0 Pathology: other (A. Duodenal fold under major papilla B. Gastric antrum C. Transverse colon polyp) Condition: stable Disposition: PACU
[2022-06-05 12:58] VITALS: BP 117/78; PULSE 87; RESP 18; TEMP 36.4; O2SAT 98
--- NOTE | 2022-06-05 23:11 | OP_ITS ---
SURGEON: Ernie Alvarez MD INDICATIONS: The patient presents for evaluation of intermittent vomiting and colorectal cancer screening. Full consent has been obtained from him for this, including risks of bleeding and perforation. PREOPERATIVE DIAGNOSIS: POSTOPERATIVE DIAGNOSIS: PROCEDURE PERFORMED: Esophagogastroduodenoscopy with biopsies and colonoscopy to the cecum with hot snare polypectomy. ESTIMATED BLOOD LOSS: COMPLICATIONS: ANESTHESIA: Monitored anesthesia care. ASSISTANTS: SPECIMENS: PREOPERATIVE DIAGNOSES: Intermittent vomiting, family history of colon cancer, personal history of tubular adenoma of the colon, and colorectal cancer screening. 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 DESCRIPTION OF PROCEDURE: The patient was placed in the left lateral decubitus position the Olympus video gastroscope was passed in the posterior oropharynx and upper esophagus under direct vision. The scope was passed slowly to the distal esophagus. The gastroesophageal junction appeared normal at 38 cm. There was no sign of any esophagitis nor Trejo's mucosa. The scope entered into the stomach. There was a small hiatal hernia. The scope was advanced to the pylorus, and the duodenum was cannulated to the descending portion. The duodenum including the bulb was carefully inspected. On the vertical duodenal fold, just beneath the major papilla, were whitish areas that I felt were probably consistent with lymphangiectasia. I do not think there appeared to be any type of adenomatous tissue. Biopsies were obtained. I was able to visualize the papilla and this appeared normal with good flow of bile noted. The remainder of the duodenum including the bulb appeared normal. The scope was withdrawn back in the stomach. The gastric antrum and body appeared normal with good peristalsis. Biopsies were obtained from the antrum. The scope was retroflexed visualizing the proximal stomach carefully, which appeared normal, without any sign of mass or ulceration. The scope was straightened and withdrawn back in the esophagus. The esophageal mucosa appeared normal. The scope was withdrawn from the patient. He was turned around for the colonoscopy. The digital rectal exam revealed no abnormalities. The Olympus video pediatric colonoscope was entered into the rectum and advanced to the cecum with the assistance of abdominal wall pressure. Once in the cecum, I did identify normal-appearing cecal pouch with appendiceal orifice and a normal-appearing ileocecal valve after copious irrigation and suctioning. There was no sign of any mass nor ulceration. The scope was then slowly withdrawn assessing all mucosal surfaces carefully. Preparation throughout the colon was, for the most part, good but did require a lot of suctioning and irrigation. In the transverse colon was an approximately 5 or 6 mm somewhat ulcerated polyp, which was removed by hot snare polypectomy and recovered by suction. The polypectomy site appeared clean, without any sign of residual polyp nor bleeding. I did not visualize any other polyps, colitis, nor angiodysplasia. There was a mild amount of sigmoid diverticulosis. In the rectum, the scope was retroflexed visualizing internal hemorrhoids, but no other pathology. The rectal mucosa appeared normal. The scope was straightened and withdrawn from the patient. He tolerated the procedure well and was returned to the recovery area in stable condition. IMPRESSION: 1. Hiatal hernia. 2. Colon polyp. 3. Diverticulosis. 4. Internal hemorrhoids. PLAN: The results of the pathology will be checked. I would recommend a repeat colonoscopy in 5 years given the somewhat limited prep and his previous history of a tubular adenoma, as well as family history of colon cancer. He was advised not to use any aspirin and NSAIDs for 1 more week. He is scheduled for a nuclear medicine gastric emptying study later this year. He does report that the episodes of vomiting are very rare. As long as he is doing well, he could then see me on a p.r.n. basis. I do not think he needs to be on any chronic acid suppression at this time. This has been discussed with his family. MD JUSTIN Ramos/ALISSA / [id number]
== END 2022-06-05 13:26 | disposition home or self-care (01) ==
PROVIDERS: PCP Internal Medicine; Visit Provider Internal Medicine
PROC: (CPT 45385; principal; 2022-06-05 11:40)
DX: Z12.11 Encounter for screening for malignant neoplasm of colon (principal); Z86.010 Personal history of colon polyps; K51.40 Inflammatory polyps of colon without complications; K57.30 Diverticulosis of large intestine without perforation or abscess without bleeding; K64.8 Other hemorrhoids; K29.50 Unspecified chronic gastritis without bleeding; K44.9 Diaphragmatic hernia without obstruction or gangrene; E78.00 Pure hypercholesterolemia, unspecified; E11.9 Type 2 diabetes mellitus without complications; I25.2 Old myocardial infarction; Z94.1 Heart transplant status; Z79.01 Long term (current) use of anticoagulants; Z79.82 Long term (current) use of aspirin; Z79.84 Long term (current) use of oral hypoglycemic drugs; Z79.899 Other long term (current) drug therapy; Z88.8 Allergy status to other drugs, medicaments and biological substances; Z86.16 Personal history of COVID-19; Z98.890 Other specified postprocedural states
CPT/HCPCS: 45385; 43239; 82947; 88305; 88342; 93005; J0171

== ENCOUNTER → 2022-08-24 07:37 | Outpatient (REF) | payer OTHER, MEDICAID, SELFPAY ==
--- NOTE | ~2022-08-24 | NM_ITS ---
EXAMINATION: RADIONUCLIDE SOLID FOOD GASTRIC EMPTYING 4-HOUR STUDY CLINICAL INFORMATION: Vomiting. COMPARISON: No previous gastric emptying study is available for comparison. TECHNIQUE: A standard meal consisting of 4 oz of Egg Beaters brand equivalent tagged with 820 microcuries Tc-99m Sulfur Colloid, 8 oz water and 2 slices of toast with jelly was administered orally to the patient. Images were obtained using a dual head gamma camera in the anterior and posterior projections over of the stomach immediately post ingestion and at hourly intervals up to 4 hours post ingestion. The anterior and posterior counts at each time interval were averaged using the geometric mean and expressed as percentage of the immediate post ingestion counts. FINDINGS: There is good visualization of activity in the stomach immediately post ingestion. As the study progresses, there is good clearance of activity from the stomach and visualization of progressively increasing small bowel activity. By the end of the study, there is almost no retention noted in the stomach. Retention in the stomach at each time interval was: 1 hour 49% (normal 37%-90%) 2 hours 50% (normal 30%-60%) 3 hours 42% 4 hours 10% (normal 0%-10%) NM/NM gastric emptying study IMPRESSION: Normal 4-hour solid food gastric emptying study.
== END ==
LOC: HO.NUCMED 07:37
PROVIDERS: PCP Internal Medicine; Visit Provider Internal Medicine
DX: R11.10 Vomiting, unspecified (principal)
CPT/HCPCS: 78264; A9541

== ENCOUNTER 2025-10-07 06:21 | Day surgery (SDC) | payer OTHER, MEDICAID, SELFPAY ==
[2025-09-30 11:54] VITALS: BP 158/89; PULSE 96; RESP 16; O2SAT 99; BMI 33.5
--- NOTE | 2025-09-30 12:21 | HO.ANESPROP2 ---
Documented by User: Mireya Kelly NP 10/02/25 13:10 HPI - Anesthesia Eval Consult details Narrative: 65yo M for Upper Endoscopy, 10/07/25 No recent illness - slight nasal congestion d/t travel/dry winter air No CP/SOB with walking on vacation in [place] yesterday, remodeling house Cardiac optimized. Follows [facility] for s/p heart transplant 2018 (hx ischemic CMP, CAD s/p CABG). Last office visit 04/2025, stable for routine f/u AICD - nonfunctional. Surgeon unable to remove during transplant d/t vasculature Case reviewed with LM Anesthesia Pre-Procedure Meds Is the patient on any of the following meds?: GLP1/DPP4 PMFSH Past Medical History Medical History (Updated 09/30/25 @ 12:18 by Luci Newton, RN) Hx of acute renal failure (2018) GERD (gastroesophageal reflux disease) Weakness History of numbness History of blood transfusion HLD (hyperlipidemia) HTN (hypertension) COVID-19 vaccine series completed History of COVID-19 Chronic renal insufficiency Diabetes Pacemaker CHF (congestive heart failure) Elevated cholesterol Myocardial infarction Family History Family history of problems with anesthesia: No Surgical History Surgical History (Updated 09/30/25 @ 11:53 by Luci Newton, SHRUTI) H/O elbow surgery Hx of lumbosacral spine surgery (01/2023) Hx laparoscopic cholecystectomy (2021) History of elbow surgery Hx of repair of right rotator cuff Hx of nasal septoplasty Hx of appendectomy History of surgery on arm History of carpal tunnel surgery of right wrist History of esophagogastroduodenoscopy (EGD) (2021) H/O colonoscopy (2021) History of PTCA Hx of CABG (~2003) Hx of heart transplant (03/20/19) History of Problems with Anesthesia: No Social History Social History (System 08/03/22 @ 09:19 by Marlene Veras) Are you a primary restorative care technician to a significant other at home: No Do you presently have visiting nurse or other home services: No Patient Tobacco Use Status: Never used Tobacco Use of substances other than those prescribed or required for medical reasons: No Have you been hit, kicked, punched, or otherwise hurt by someone within the past year? If so, by whom?: No [facility] Practices: [employer]regation Are you DNR?: No Advance Directives: No Advance Directives Information Provided: Yes Advance Directives on File: No Meds Allergies Allergy/AdvReac Type Severity Reaction Status Date / Time heparin Allergy Severe Blood clots Verified 10/07/25 06:58 spironolactone Allergy Unknown Verified 10/07/25 06:58 Home Medications ?Medication ?Instructions ?Recorded ?Confirmed ?Last Taken ?Type aspirin 81 mg tablet,delayed 81 mg PO DAILY 05/31/22 10/07/25 10/06/25 History release calcium carbonate 1,000 mg PO BID 05/31/22 10/07/25 Unknown History cholecalciferol (vitamin D3) 25 25 mcg PO DAILY 05/31/22 10/07/25 Unknown History mcg (1,000 unit) capsule (Vitamin D3) docusate sodium 100 mg capsule 100 mg PO DAILY 05/31/22 10/07/25 Unknown History doxazosin 2 mg tablet 2 mg PO DAILY 05/31/22 10/07/25 06/05/22 08:00 History magnesium oxide 420 mg tablet 840 mg PO BID 05/31/22 10/07/25 Unknown History metformin 500 mg tablet 500 mg PO BID 05/31/22 10/07/25 10/06/25 History mycophenolate mofetil 500 mg 500 mg PO BID 05/31/22 10/07/25 06/05/22 08:00 History tablet (CellCept) pantoprazole 40 mg tablet,delayed 40 mg PO BID 05/31/22 10/07/25 10/07/25 History release rosuvastatin 40 mg tablet 40 mg PO DAILY 05/31/22 10/07/25 Unknown History tacrolimus 1 mg capsule, 2 mg PO QAM 05/31/22 10/07/25 06/05/22 08:00 History immediate-release insulin glargine 100 unit/mL (3 17 unit subcut BEDTIME 09/30/25 10/07/25 10/06/25 History mL) subcutaneous pen (Lantus Solostar U-100 Insulin) losartan 25 mg tablet 25 mg PO DAILY 09/30/25 10/07/25 Unknown History losartan 50 mg tablet 50 mg PO DAILY 09/30/25 10/07/25 Unknown History tacrolimus 1 mg capsule, 1 mg PO .DAILY@199909/30/25 10/07/25 Unknown History immediate-release tirzepatide 7.5 mg/0.5 mL 7.5 mg subcut QWEEK 09/30/25 10/07/25 09/25/25 History subcutaneous pen injector (Pedrito) Exam Height,Weight and Vital Signs: Height 5 ft 11 in Weight 108.862 kg Last Vital Signs Pulse 96 09/30/25 11:54 Resp 16 09/30/25 11:54 BP 158/89 H 09/30/25 11:54 Pulse Ox 99 09/30/25 11:54 O2 Del Method Room Air 09/30/25 11:54 Pertinent Lab Results Pertinent Lab Results: Outside labs ([facility]) 09/2025 CBC with H&H low @ 11.4 & 36.3 CMP with BUN/Creat up @ 26/1.3 Narrative Narrative: Nuc Stress 04/2025 1. Nml perfusion at stress and rest, without evidence of ischemia or infarction 2. Nml regional and global LV function with LVEF 70% EKG 02/2024 SR RBBB ECHO 2020 LV nml in size and wall thickness EF 55% Borderline RV enlargement RV sys function is mildly reduced. Trace MR Trace TR Trace OR Airway Mallampati Class: II TM Dist: >3cm Neck ROM: Full (some cspine pain) Loose/Missing/Broken Teeth: No Heart: RRR Lungs: CTAB Assessment and Plan Assessment Anesthesia Assessment: Anesthesia Plan Discussed and PAT Visit Final Anesthetic Review Family History of Problems with Anesthesia: No History of Problems with Anesthesia: No Documented by User: Torres Alex MD 10/07/25 07:42 [facility] Past Medical History Medical History (Updated 09/30/25 @ 12:18 by Luci Newton, SHRUTI) Hx of acute renal failure (2019) GERD (gastroesophageal reflux disease) Weakness History of numbness History of blood transfusion HLD (hyperlipidemia) HTN (hypertension) COVID-19 vaccine series completed History of COVID-19 Chronic renal insufficiency Diabetes Pacemaker CHF (congestive heart failure) Elevated cholesterol Myocardial infarction Surgical History Surgical History (Updated 09/30/25 @ 11:53 by Luci Newton RN) H/O elbow surgery Hx of lumbosacral spine surgery (01/2023) Hx laparoscopic cholecystectomy (2021) History of elbow surgery Hx of repair of right rotator cuff Hx of nasal septoplasty Hx of appendectomy History of surgery on arm History of carpal tunnel surgery of right wrist History of esophagogastroduodenoscopy (EGD) (2021) H/O colonoscopy (2021) History of PTCA Hx of CABG (~2003) Hx of heart transplant (03/20/19) Social History Social History (System 08/03/22 @ 09:19 by Marlene Veras) Are you a primary restorative care technician to a significant other at home: No Do you presently have visiting nurse or other home services: No Patient Tobacco Use Status: Never used Tobacco Use of substances other than those prescribed or required for medical reasons: No Have you been hit, kicked, punched, or otherwise hurt by someone within the past year? If so, by whom?: No [employer] [facility] Practices: [employer]regation Are you DNR?: No Advance Directives: No Advance Directives Information Provided: Yes Advance Directives on File: No Meds Allergies Allergy/AdvReac Type Severity Reaction Status Date / Time heparin Allergy Severe Blood clots Verified 10/07/25 06:58 spironolactone Allergy Unknown Verified 10/07/25 06:58 Home Medications ?Medication ?Instructions ?Recorded ?Confirmed ?Last Taken ?Type aspirin 81 mg tablet,delayed 81 mg PO DAILY 05/31/22 10/07/25 10/06/25 History release calcium carbonate 1,000 mg PO BID 05/31/22 10/07/25 Unknown History cholecalciferol (vitamin D3) 25 25 mcg PO DAILY 05/31/22 10/07/25 Unknown History mcg (1,000 unit) capsule (Vitamin D3) docusate sodium 100 mg capsule 100 mg PO DAILY 05/31/22 10/07/25 Unknown History doxazosin 2 mg tablet 2 mg PO DAILY 05/31/22 10/07/25 06/05/22 08:00 History magnesium oxide 420 mg tablet 840 mg PO BID 05/31/22 10/07/25 Unknown History metformin 500 mg tablet 500 mg PO BID 0810/07/25 10/06/25 History mycophenolate mofetil 500 mg 500 mg PO BID 05/31/22 10/07/25 06/05/22 08:00 History tablet (CellCept) pantoprazole 40 mg tablet,delayed 40 mg PO BID 05/31/22 10/07/25 10/07/25 History release rosuvastatin 40 mg tablet 40 mg PO DAILY 05/31/22 10/07/25 Unknown History tacrolimus 1 mg capsule, 2 mg PO QAM 05/31/22 10/07/25 06/05/22 08:00 History immediate-release insulin glargine 100 unit/mL (3 17 unit subcut BEDTIME 09/30/25 10/07/25 10/06/25 History mL) subcutaneous pen (Lantus Solostar U-100 Insulin) losartan 25 mg tablet 25 mg PO DAILY 09/30/25 10/07/25 Unknown History losartan 50 mg tablet 50 mg PO DAILY 09/30/25 10/07/25 Unknown History tacrolimus 1 mg capsule, 1 mg PO .DAILY@199909/30/25 10/07/25 Unknown History immediate-release tirzepatide 7.5 mg/0.5 mL 7.5 mg subcut QWEEK 09/30/25 10/07/25 09/25/25 History subcutaneous pen injector (Pedrito) Exam Airway TM Dist: <=3cm Assessment and Plan Assessment Anesthesia Assessment: Chart Reviewed Final Anesthetic Review NPO: Yes ASA Class: III and IV Final Preanesthetic Review: No Changes in Pt Med Stat, Meds/Allgs Chart Reviewed, Consent Obtained/Reviewed and Anes Risks/Benef Reviewed Patient Risk: Intermediate Procedure Risk: Intermediate Anesthetic Plan Anesthetic Plan: Agree w/ Assess. and Plan and TIVA Disposition: Standard PACU
[2025-10-07 06:45] VITALS: BMI 33.3
[2025-10-07 06:46] VITALS: BP 155/111; PULSE 96; RESP 18; TEMP 36.1; O2SAT 100
[2025-10-07 06:56] VITALS: BP 140/89; PULSE 93; RESP 18; O2SAT 100
[2025-10-07 07:04] LABS: Glucose, Whole Blood 152 mg/dL (60-115)
[2025-10-07 08:24] VITALS: BP 91/61; PULSE 85; RESP 16; TEMP 36.5; O2SAT 93
--- NOTE | 2025-10-07 08:29 | P.BOP_ITS ---
Brief Operative Note Date of Service: 10/07/25 Pre-op diagnosis: GERD Post-op diagnosis: other (Same, small hiatal hernia) Procedure: EGD with biopsies Surgeon: Ernie Alvarez MD Anesthesia: MAC Was an Ppap Coordinator used for this Procedure?: No Estimated blood loss (mL): 2.0 Pathology: other (A. EG Junction at 39cm) Condition: stable Disposition: PACU
[2025-10-07 08:39] VITALS: BP 129/90; PULSE 88; RESP 18; TEMP 36.6; O2SAT 97
--- NOTE | 2025-10-07 09:09 | OP_ITS ---
DATE OF SERVICE: 10/07/2025 SURGEON: Ernie Alvarez MD INDICATIONS: The patient presents for evaluation of gastroesophageal reflux. Full consent was obtained from him for this, including risks of bleeding and perforation. PREOPERATIVE DIAGNOSIS: Gastroesophageal reflux. POSTOPERATIVE DIAGNOSIS: Gastroesophageal reflux, small hiatal hernia. PROCEDURE PERFORMED: Esophagogastroduodenoscopy with biopsies. ESTIMATED BLOOD LOSS: COMPLICATIONS: ANESTHESIA: Monitored anesthesia care. ASSISTANTS: SPECIMENS: DESCRIPTION OF PROCEDURE: The patient was placed in the left lateral decubitus position. The Olympus video gastroscope was passed in the posterior oropharynx and upper esophagus under direct vision. The scope was passed slowly to the distal esophagus. The gastroesophageal junction appeared at 39 cm. There was a very minimal irregularity, but no evidence of esophagitis nor any definitive evidence of Trejo mucosa. There was a small hiatal hernia. The scope was advanced into the stomach and advanced to the pylorus. The duodenum was cannulated to the descending portion. The duodenum including the bulb appeared normal without mass or ulceration. The scope was withdrawn back in the stomach. The gastric antrum and body appeared normal with good peristalsis. The scope was retroflexed, visualizing the proximal stomach carefully, which appeared normal, without any sign of mass or ulceration. The scope was straightened and withdrawn back to the esophagus. Biopsies were obtained at the EG junction at 39 cm. Proximal to this, the esophageal mucosa appeared normal. Scope was withdrawn from the patient. He tolerated procedure well and was returned to the recovery area in stable condition. IMPRESSION: Small hiatal hernia, gastroesophageal reflux. PLAN: The results of the biopsies will be checked. He was advised to resume his aspirin tomorrow. He will continue his Protonix at least once a day but does have a prescription to use it twice a day as needed. He was advised to try to watch his diet, his weight, etc to minimize reflux symptoms as well. I do not think he would need any further upper endoscopies at this point. He will be due for a followup colonoscopy in 2026, but otherwise, see me as needed. This has been discussed with the sister. MD JUSTIN Raoms/ALISSA / [id number]
== END 2025-10-07 09:04 | disposition home or self-care (01) ==
PROVIDERS: PCP Internal Medicine; Visit Provider Internal Medicine
PROC: 0DJ08ZZ Inspection of Upper Intestinal Tract, Via Natural or Artificial Opening Endoscopic (ICD-10-PCS; CPT 43235; principal; 2025-10-07 07:30)
DX: K21.9 Gastro-esophageal reflux disease without esophagitis (principal); R12 Heartburn; K59.00 Constipation, unspecified; K44.9 Diaphragmatic hernia without obstruction or gangrene; E11.9 Type 2 diabetes mellitus without complications
CPT/HCPCS: 43239; 82947; 88305; J2003; J2704; J3010